=== PATIENT | male | born 1995 | race Caucasian/White ===

== ENCOUNTER 2024-08-21 01:03 | Emergency (ER) | payer OTHER, SELFPAY ==
[2024-08-21 01:05] VITALS: BP 195/105; PULSE 98; RESP 16; TEMP 36.4; O2SAT 98; BMI 18.6
--- NOTE | 2024-08-21 01:27 | ED.GENADULT ---
HPI - General Adult General Chief complaint: Cough Stated complaint: Coughing up blood Time Seen by Provider: 08/21/24 01:04 History of Present Illness HPI narrative: Patient is a 28-year-old gentleman who has been having nonproductive cough for the last 10 days. Over last 24 hours he has begun noticing blood tinged sputum. Patient feels like otherwise he is getting better. He has no fevers chills night sweats chest pain shortness a breath. He smokes tobacco. He has no abdominal pain changes bowel or bladder. He again notes no overt chest pain. Related Data Home Medications ?Medication ?Instructions ?Recorded ?Confirmed No Known Home Medications 08/21/24 08/21/24 Allergies Allergy/AdvReac Type Severity Reaction Status Date / Time amoxapine AdvReac Rash Verified 08/21/24 01:09 Review of Systems Status of ROS: Reports: 10 or more systems reviewed and unremarkable except as noted in History and below Exam Narrative: Exam Narrative: EXAM GENERAL: Patient appears comfortable and well. EYES: No scleral icterus. ENT: Tympanic membranes and oropharynx normal. THYROID: no thyroid nodules or thyromegaly. LYMPH: No supraclavicular or cervical lymphadenopathy. SKIN: Visible skin seen during exam normal or with benign process only. EXT: No dependent lower extremity pedal edema. HEART: Regular rate and rhythm with no murmurs, rubs, or gallops. LUNGS: Clear to auscultation bilaterally with no crackles or wheezes. ABD: Soft, non tender, non distended. PSYCH: Good eye contact, speech is not pressured. Const: Vital Signs, click to edit/add: Vital Signs - 24 hr 08/21/24 01:05 Temperature 97.6 F Pulse Rate [Pulse Oximeter] 98 Respiratory Rate 16 Blood Pressure [Ri ght Upper Arm] 195/105 H Pulse Oximetry 98 Oxygen Delivery Me thod Room Air Course Course ED Course: Patient seen and examined. Chest x-ray pending. Vital Signs Vital signs: Initial Vital Signs Temperature 97.6 F 08/21/24 01:05 Temperature Source Temporal Artery Scan 08/21/24 01:05 Pulse Rate 98 08/21/24 01:05 Respiratory Rate 16 08/21/24 01:05 Blood Pressure 195/105 H 08/21/24 01:05 Blood Pressure Mean 135 H 08/21/24 01:05 Blood Pressure Position Sitting 08/21/24 01:05 Pulse Oximetry 98 08/21/24 01:05 Oxygen Delivery Method Room Air 08/21/24 01:05 Vital Signs Temperature 97.6 F 08/21/24 01:05 Pulse Rate 98 08/21/24 01:05 Respiratory Rate 16 08/21/24 01:05 Blood Pressure 195/105 H 08/21/24 01:05 Pulse Oximetry 98 08/21/24 01:05 Oxygen Delivery Method Room Air 08/21/24 01:05 Temperature 97.6 F 08/21/24 01:05 Pulse Rate 98 08/21/24 01:05 Respiratory Rate 16 08/21/24 01:05 Blood Pressure 195/105 H 08/21/24 01:05 Pulse Oximetry 98 08/21/24 01:05 Oxygen Delivery Method Room Air 08/21/24 01:05 Medical Decision Making MDM Narrative Medical decision making narrative: Patient is a 28-year-old gentleman who comes in today coughing up some blood approximately 10 days after starting an episode of bronchitis or viral syndrome. Patient is quite nervous. He is a smoker. He was seen in urgent care earlier today and offer reassurance. Tonight we did do a chest x-ray which is normal. Patient is very anxious but otherwise has normal vital signs other than his elevated blood pressure. At this time he likely has post of viral syndrome hemoptysis which will resolve spontaneously. I did offer reassurance cough syrup rest and fluids with primary care follow-up. Discharge Plan Discharge Clinical Impression: Bronchitis Patient Disposition: Home, Self-Care Condition: Stable Instructions: Acute Bronchitis (ED) Additional Instructions: Robitussin DM Stop smoking Tylenol Avoid Motrin Follow-up with your doctor as needed. Activity Level: No Restrictions Discharge Diet: Regular Prescriptions: No Action No Known Home Medications Follow Up/Referrals: Provider,Not a Local [Primary Care Provider] - Stand Alone Forms: [employer] Info Instructions
[2024-08-21 01:58] LABS: PCR FLU A Negative PCR FLU A (Negative); PCR FLU B Negative PCR FLU B (Negative); PCR RSV Negative PCR RSV (Negative); SARS PCR* Negative SARS-CoV-2 (Negative)
== END 2024-08-21 01:41 | disposition home or self-care (01) ==
PROVIDERS: Emergency Provider Internal Medicine
DX: J40 Bronchitis, not specified as acute or chronic (principal); R04.2 Hemoptysis; R05.9 Cough, unspecified
CPT/HCPCS: 71046; 87637; 99283; 99284